=== PATIENT | female | born 1990 | race American Indian/Alaskan Native ===

== ENCOUNTER 2022-05-25 04:39 | Outpatient (CLI) | payer MEDICAID ==
[2022-05-25 04:55] VITALS: BP 123/68
[2022-05-25 10:27] LABS: Bilirubin,Urine NEG (Negative); Blood,Urine NEG (Negative); Color,Urine Amber (Yellow); Urobilinogen,Urine < 2.0 mg/dL (<2.0)
[2022-05-25 10:36] LABS: Bacteria,Urine 2+ /HPF (Negative); Mucus,Urine 1+ /HPF
[2022-05-25 10:43] LABS: WBC,Urine > 182.0 /HPF (0.0-6.0)
== END 2022-05-25 06:22 | disposition home or self-care (01) ==
LOC: TRG 04:39 → APU 04:41 → TRG 06:22
PROVIDERS: ATTEND Obstetrics & Gynecology
DX: Z34.93 Encounter for supervision of normal pregnancy, unspecified, third trimester (principal); Z3A.38 38 weeks gestation of pregnancy
CPT/HCPCS: 59025; 81001

== ENCOUNTER 2022-05-26 04:54 | Outpatient (CLI) | payer MEDICAID ==
[2022-05-26 05:16] VITALS: BP 118/69
[2022-05-26 06:18] LABS: Bilirubin,Urine NEG (Negative); Blood,Urine NEG (Negative); Color,Urine Yellow (Yellow); Urobilinogen,Urine < 2.0 mg/dL (<2.0)
[2022-05-26 06:19] LABS: Mucus,Urine 1+ /HPF
== END 2022-05-26 06:46 | disposition home or self-care (01) ==
LOC: TRG 04:54 → APU 04:55 → TRG 06:46
PROVIDERS: ATTEND Obstetrics & Gynecology
DX: Z34.93 Encounter for supervision of normal pregnancy, unspecified, third trimester (principal); Z3A.38 38 weeks gestation of pregnancy
CPT/HCPCS: 59025; 81001; 87086